=== PATIENT | male | born 1985 | race Caucasian/White ===

== ENCOUNTER 2022-06-27 23:47 | Emergency (ER) | payer OTHER ==
[~2022-06-27] VITALS: Ht 172.7 cm; Wt 81.6 kg
[2022-06-28] MEDS ORDERED: HYDROCODONE/APAP 10-325 MG TABLET ONE (01:38)
[2022-06-28] MEDS ORDERED: HYDR-3980 PO (01:39)
--- NOTE | 2022-06-28 01:42 | NUR ---
1) [place] 10mg administered as prescribed and await effect. 2) Warner straping to the left small toe (5th distal toe). 3) Offered patient extra tape and eduacted on how to strap toe at home
[2022-06-28] MEDS ORDERED: HYDROCODONE/APAP 10-325 MG TABLET PO ONE (01:45)
[2022-06-28 01:58] VITALS: BP 136/90
--- NOTE | 2022-06-28 01:59 | NUR ---
Discharged home - clinically stable at the time of this report.
== END 2022-06-28 01:59 | disposition home or self-care (01) ==
LOC: ER 23:47
DX: S92.512A Displaced fracture of proximal phalanx of left lesser toe(s), initial encounter for closed fracture (principal); F17.210 Nicotine dependence, cigarettes, uncomplicated; Z79.899 Other long term (current) drug therapy; W22.8XXA Striking against or struck by other objects, initial encounter; Y93.89 Activity, other specified; Y92.89 Other specified places as the place of occurrence of the external cause; Y99.8 Other external cause status
CPT/HCPCS: 73660; A4663

== ENCOUNTER 2022-07-26 07:57 | Emergency (ER) | payer OTHER ==
[~2022-07-26] VITALS: Ht 172.7 cm; Wt 83.9 kg
[~2022-07-26 07:57] MED LIST: HYDR-3980 PO
--- NOTE | 2022-07-26 08:00 | NUR ---
pt seen and examined by jess Eagle on scalp drained.
[2022-07-26] MEDS ORDERED: SULF1TAB48 PO (08:11)
[2022-07-26] MEDS ORDERED: CEPH500C2 PO (08:11)
--- NOTE | 2022-07-26 08:34 | NUR ---
Discusses d/c instructions with patient verbalized understnding. D/c home in stable condition
== END 2022-07-26 08:35 | disposition home or self-care (01) ==
LOC: ER 08:09
DX: L02.811 Cutaneous abscess of head [any part, except face] (principal); L72.0 Epidermal cyst; F17.210 Nicotine dependence, cigarettes, uncomplicated; Z79.899 Other long term (current) drug therapy
CPT/HCPCS: A4663